=== PATIENT | female | born 2000 ===

== ENCOUNTER → 2020-07-11 15:40 | Outpatient (CLI) | payer OTHER, SELFPAY ==
--- NOTE | 2020-07-11 16:09 | DI.ECHO.S_ITS ---
Echocardiogram Report + + :Name: TONNY SPARKS Study Date: 07/11/2020 Height: 62 in : :[facility] Weight: 117 lb : : Gender: Female BSA: 1.5 m2 : :: 2000 Age: 19 yrs BP: 109/86 mmHg: :Reason For Study: SYNCOPE : :Ordering Physician: DEVAN, : :BIPIN Performed By: Harriet Fontaine : :Referring: BIPIN HARTMAN : + + Interpretation Summary Normal echo study. Procedure: A two-dimensional transthoracic echocardiogram with color flow and Doppler was performed. There is no prior echocardiogram noted for this patient. The study quality was technically adequate. The heart rate ranged between 88-117 bpm during the study. Left Ventricle: The left ventricle is normal in size. There is normal left ventricular wall thickness. The ejection fraction is estimated to be 60-65%. Left ventricular wall motion is normal. Diastolic parameters suggest probable normal left ventricular diastolic function and normal filling pressures. Right Ventricle: The right ventricle is normal in size and function. Atria: The left atrial size is normal. Right atrial size is normal. The interatrial septum is intact with no evidence for an atrial septal defect. Mitral Valve: The mitral valve is normal in structure and function. There is no mitral regurgitation noted. Aortic Valve: The aortic valve is trileaflet. The aortic valve opens well. There is no aortic valve stenosis. No aortic regurgitation is present. Tricuspid Valve: The tricuspid valve is normal in structure and function. There is a trace or physiologic amount of tricuspid regurgitation. Pulmonary artery pressures cannot be estimated because of the lack of a measurable TR jet velocity but the IVC suggests a CVP of around 3 mmHg. Pulmonic Valve: The pulmonic valve leaflets are thin and pliable; valve motion is normal. There is a trace or physiologic amount of pulmonic regurgitation. Great Vessels: The aortic root is normal size. The dimensions of the ascending aorta are normal. The IVC is of normal diameter and collapses greater than 50% with a sniff. This suggests a low right atrial pressure of 3 mm Hg. Pericardium/ Pleura There is no pericardial effusion. There is no pleural effusion. MMode/2D Measurements & Calculations LVIDd: 3.9 cm LVOT diam: 1.9 cm LVIDs: 2.5 cm Ao root diam: 2.4 cm FS: 36.8 % asc Aorta Diam: 2.5 cm EPSS: 0.72 cm Ao Arch Diam (Prox Trans): 2.4 cm IVSd: 0.79 cm LVPWd: 0.60 cm LV chinchilla. diameter/BSA (cm/m^2): 2.6 LV sys. diameter/BSA (cm/m^2): 1.6 LA A2 area: 12.8 cm2 RA long axis: 4.1 cm LA A4 area: 10.9 cm2 RA area: 11.2 cm2 LA length (vol): 4.0 cm RA vol: 26.3 ml LA vol: 29.9 ml RA : 17.3 ml/m2 LA vol index: 19.7 ml/m2 IVC diam: 1.2 cm RVD1 (basal): 2.6 cm TAPSE: 1.9 cm Doppler Measurements & Calculations Ao V2 max: 133.1 cm/sec LVOT Max Mikael: 119.0 cm/sec Ao V2 mean: 86.0 cm/sec LV V1 max P.7 mmHg Ao max P.1 mmHg LV V1 VTI: 21.2 cm Ao mean P.5 mmHg LISBETH(I,D): 2.4 cm2 Ao V2 VTI: 24.5 cm LISBETH(V,D): 2.5 cm2 sev ratio: 0.86 LISBETH indexed to BSA (cm^2/m^2): 1.6 MV E max mikael: 94.6 cm/sec PA pr(Accel): 10.5 mmHg MV A max mikael: 71.3 cm/sec MV E/A: 1.3 Med Peak E' Mikael: 13.9 cm/sec E/E' med: 6.8 Lat Peak E' Mikael: 16.3 cm/sec E/E' lat: 5.8 E/e' average: 6.3 MV dec time: 0.15 sec SV(LVOT): 59.3 ml Electronically signed by: Ashley Walters on Reading Physician:07/11/2020 06:51 PM
== END ==
PROVIDERS: Referring Provider Physician Assistant; Visit Provider Physician Assistant
DX: R55 Syncope and collapse (principal)
CPT/HCPCS: 93306